=== PATIENT | male | born 1970 | race Caucasian/White ===

== ENCOUNTER 2019-12-03 10:33 | Outpatient (CLI) | payer BC, SELFPAY ==
[2019-12-03 11:14] LABS: Add Urine Microscopic? NO; Appearance Urine Clear (Clear); Bilirubin Urine Negative (Negative); Blood Urine Negative (Negative); Color Urine Straw (Yellow); Glucose Urine UA Negative (Negative); Ketones Urine Negative (Negative); Leukocyte Esterase Ur Negative LEU/UL (NEGATIVE); Nitrate Urine Negative (Negative); Protein Urine Negative (Negative); Specific Grav Ur 1.009 (1.001-1.035); Urobilinogen Urine Negative mg/dL (<2.0)
[2019-12-03 11:26] LABS: Anion Gap 8 mmol/L (8-16); Blood Urea Nitrogen 11 mg/dL (9-20); Calcium 9.5 mg/dL (8.4-10.2); Carbon Dioxide 34 mmol/L (22-30); Chloride 99 mmol/L (98-107); Cholesterol 184 mg/dL (0-200); Estimated Glomerular Filt Rate > 60; Glucose 96 mg/dL (75-110); HDL Direct 34 mg/dL; Potassium 4.1 mmol/L (3.4-5.0); Sodium 141 mmol/L (137-145); Triglycerides 205 mg/dL (<150)
[2019-12-03 11:38] LABS: LDL Cholesterol Direct 120 mg/dL
[2019-12-03 11:54] LABS: Prostate Specific Antigen 0.8 ng/mL (< OR = 4.0); Vitamin D 25 Hydroxy 49.7 ng/mL
[2019-12-03 14:30] LABS: Basophils Absolute Auto 0.1 K/mm3 (0.0-0.1); Basophils Percent Auto 0.6 % (0.2-1.2); Eosinophils Absolute Auto 0.1 K/mm3 (0-0.3); Eosinophils Percent Auto 0.5 % (0-4.4); Hematocrit 45.2 % (42.0-52.0); Hemoglobin 15.5 g/dL (14.0-18.0); Immature Granulocyte Absolute 0.03 K/mm3 (0.00-0.031); Immature Granulocyte Percent A 0.3 % (0-0.5); Lymphocytes Absolute Auto 2.02 K/mm3 (0.9-3.2); Lymphocytes Percent Auto 20.4 % (18.3-44.2); Mean Corpuscular HGB Conc 34.3 g/dl (32-36); Mean Corpuscular Hemoglobin 29.9 pg (26-34); Mean Corpuscular Volume 87.3 fl (80-100); Mean Platelet Volume 9.9 fl (7.4-10.4); Monocytes Absolute Auto 0.9 K/mm3 (0.1-0.6); Monocytes Percent Auto 8.9 % (2.6-8.5); Neutrophils Absolute Auto 6.9 K/mm3 (1.3-6.7); Neutrophils Percent Auto 69.3 % (45.5-73.1); Platelet Count Result 288 k/mm3 (150-375); Red Blood Count 5.18 M/mm3 (4.6-6.20); Red Cell Distribution Width 11.8 % (11.5-14.5); White Blood Count 9.9 K/mm3 (4.5-10.0)
== END 2019-12-03 10:34 | disposition home or self-care (01) ==
PROVIDERS: PCP Family Medicine; Visit Provider Family Medicine
DX: Z13.220 Encounter for screening for lipoid disorders (principal); Z12.5 Encounter for screening for malignant neoplasm of prostate; R35.1 Nocturia; E55.9 Vitamin D deficiency, unspecified
CPT/HCPCS: 36415; 80048; 80061; 81003; 82306; 84153; 85025; G0103

== ENCOUNTER 2020-12-25 09:00 | Outpatient (CLI) | payer BC, SELFPAY ==
[2020-12-25 10:01] LABS: Prostate Specific Antigen 0.9 ng/mL (< OR = 4.0)
== END 2020-12-25 09:01 | disposition home or self-care (01) ==
LOC: ANHLAB 09:01
PROVIDERS: PCP Family Medicine; Visit Provider Family Medicine
DX: Z12.5 Encounter for screening for malignant neoplasm of prostate (principal)
CPT/HCPCS: 36415; 84153; G0103

== ENCOUNTER 2022-09-08 09:55 | Outpatient (CLI) | payer BC, SELFPAY ==
[2022-09-08 10:45] LABS: LDL Cholesterol Direct 130 mg/dL
[2022-09-08 10:53] LABS: Cholesterol 210 mg/dL (0-200); HDL Direct 37 mg/dL; Triglycerides 181 mg/dL (<150)
[2022-09-08 11:09] LABS: Prostate Specific Antigen 0.8 ng/mL (< OR = 4.0)
== END 2022-09-08 09:56 | disposition home or self-care (01) ==
LOC: ANHLAB 09:57
PROVIDERS: PCP Family Medicine; Visit Provider Family Medicine
DX: Z12.5 Encounter for screening for malignant neoplasm of prostate (principal); Z13.220 Encounter for screening for lipoid disorders
CPT/HCPCS: 36415; 80061; 84153; G0103

== ENCOUNTER 2022-12-05 03:02 | Day surgery (SDC) | payer BC, SELFPAY ==
[2022-11-22 15:22] VITALS: BMI 25.0
[2022-12-05 09:42] VITALS: BP 139/75; PULSE 67; RESP 16; TEMP 36; O2SAT 99
[2022-12-05] MEDS: LACTATED RINGERS 1,000 ML 150 ML IV CONT (09:53)
--- NOTE | 2022-12-05 10:47 | PM.HPGS ---
History of Present Illness History of Present Illness Consent: Risks, benefits, and alternatives have been discussed and questions answered. Patient agrees to proceed with procedure. Chief complaint: neoplasm screening Narrative: Alfred Carvajal is a 52 year old male Presents for screening colonoscopy. Patient's current weight appetite and bowel movements are normal. Patient denies abdominal pain. He has had no bleeding. Family history noncontributory. Review of Systems Review of Systems: Review of systems noncontributory. [facility] Past Medical History Medical History (Updated 12/05/22 @ 10:48 by Brad Kenny MD) Need for vaccination Nocturia Screening for lipid disorders Screening for prostate cancer Well adult on routine health check Surgical History Surgical History H/O: vasectomy Hx of tonsillectomy Family History Family History Mother Pancreatic cancer Grandparent Heart disease Father Malignant neoplasm of prostate Other Pancreatic carcinoma Social History Social History Smoking status: Never smoker Second hand tobacco smoke exposure: Yes Alcohol intake: current Substance use: never Substance use type: does not use Lack of Transportation: No Lack of Food: Never True Current Housing: I Have Housing Concerned About Future Housing: No Difficulty Paying Gas/Electric Bills: No Difficulty Paying for Meds: No Currently Unemployed: No Education: Associate Degree Difficulty w/ Childcare or Family Care: No Living arrangements: with family Occupation/Education: occupation Gender identity (if verbalized by the patient): Male Spiritual care concerns: No Meds Home Medications and Allergies Home Medications Medication Instructions Recorded Confirmed Type latanoprost 0.005 % eye drops 1 drp ophthalmic (eye) DAILY 12/03/19 11/22/22 History diph,pertuss(acel),tet vac(PF) 2 0.5 ml IM ONCE #0.5 mL 09/08/22 12/05/22 Rx Lf-(2.5-5-3-5mcg)-5 Lf/0.5 mL IM syringe (Adacel (Tdap Adolesn/Adult)(PF)) cholecalciferol (vitamin D3) 50 50 mcg PO DAILY 11/22/22 12/05/22 History mcg (2,000 unit) capsule (Vitamin D3) magnesium glycinate-mag oxide 240 mg PO DAILY 11/22/22 12/05/22 History zinc 50 mg tablet 50 mg PO DAILY 11/22/22 12/05/22 History Allergies Allergy/AdvReac Type Severity Reaction Status Date / Time No Known Allergies Allergy Verified 12/05/22 09:39 Vital Signs Vital Signs - 24 hr 12/05/22 09:42 Temperature 96.8 F L Pulse Rate 67 Respiratory Rate 16 Blood Pressure 139/75 Pulse Oximetry 99 Oxygen Delivery Room Air Exam Narrative: Physical exam reveals patient to be alert. Vital signs stable. HEENT exam is unremarkable. Patient is anicteric. Lungs are clear to auscultation and percussion. Heart is without murmur or extra sounds. Abdomen bowel sounds are present soft nontender with no organomegaly. Digital external rectal exam normal. She Assessment and Plan Assessment and plan (1) Encounter for screening colonoscopy: Code(s): Z12.11 - Encounter for screening for malignant neoplasm of colon Status: Acute Assessment and Plan: patient presents today for screening colonoscopy. He appears to be at average risk for colon polyps are ruling a shins may be given after endoscopy.
[2022-12-05 11:05] VITALS: BP 99/55; PULSE 50; RESP 14; O2SAT 99
[2022-12-05 11:15] VITALS: BP 114/70; PULSE 70; RESP 20; O2SAT 97
[2022-12-05 11:25] VITALS: BP 116/72; PULSE 53; RESP 16; O2SAT 97
== END 2022-12-05 11:34 | disposition home or self-care (01) ==
PROVIDERS: PCP Family Medicine; Visit Provider Internal Medicine Gastroenterology
PROC: 0DJD8ZZ Inspection of Lower Intestinal Tract, Via Natural or Artificial Opening Endoscopic (ICD-10-PCS; CPT 45378; principal; 2022-12-05 11:00)
DX: Z12.11 Encounter for screening for malignant neoplasm of colon (principal)
CPT/HCPCS: 45378; J2704; J7120

== ENCOUNTER 2024-12-19 14:08 | Outpatient (CLI) | payer BC, SELFPAY ==
--- NOTE | ~2024-12-19 | CT_ITS ---
Exam: CT abdomen and pelvis without contrast Clinical History: [Right-sided flank pain. ] Comparison: [ None available] Technique: Multiple axial CT images of the abdomen and pelvis were obtained without IV contrast. Sagittal and coronal reformatted images were obtained. FINDINGS: Lung bases: [ ] Liver: [ No mass.] [ No intrahepatic biliary duct dilatation.] Gallbladder: [ No wall thickening or stones.] Common bile duct: [ Normal caliber.] [ No stones.] Spleen: [ Within normal limits.] Pancreas: [ No mass. No pancreatic fluid collection.] Adrenals: [ No masses.] Kidneys: [ No masses. No hydronephrosis.][ ] Lymph nodes: [ No adenopathy in the abdomen or pelvis.] Stomach, small bowel and colon: [ No bowel wall thickening or obstruction.] Peritoneum cavity: [ No mesenteric fat stranding or fluid.] Bladder: [ Unremarkable.] Osseous structures: [ No acute fracture or destructive lesion.] [ Multilevel degenerative change in the visualized spine.] Abdominal aorta: [ No aneurysm.] Additional findings: Prostate gland is partially calcified and mildly enlarged. IMPRESSION: 1. No CT evidence for an acute process in the abdomen or pelvis at this time. If symptoms persist or worsen, consider a short-term follow-up study or additional imaging for further assessment. Reviewed, dictated and finalized at location Q. IMPRESSION: 1. No CT evidence for an acute process in the abdomen or pelvis at this time. If symptoms persist or worsen, consider a short-term follow-up study or additio nal imaging for further assessment.
--- NOTE | ~2024-12-19 | XR_ITS ---
Abdominal radiograph(s) INDICATION: Flank pain COMPARISON: None TECHNIQUE: 2 view supine AP abdomen FINDINGS: Lung bases clear. Scattered colonic gas and stool. Small bowel loops not well seen. No evidence of organomegaly. No abnormal abdominal calcifications. Pelvic phleboliths. No acute bony abnormality. IMPRESSION: 1. No acute findings. Reviewed, dictated and finalized at location R. IMPRESSION: 1. No acute findings.
--- OUTSIDE RECORDS SUMMARY | 2024-12-19 14:45 | XMS_ITS | Encounter Summary ---
Author Organization [facility] Address 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
--- OUTSIDE RECORDS SUMMARY | 2024-12-19 14:45 | XMS_ITS | Clinical Summary ---
Author Organization [facility] Address [address] [address] Phone Care Team Providers Care Anatomic Pathology Manager Name Role Phone Ky Aguilar MD Primary Care Provider + Ky Aguilar MD Unavailable [phone] Allergies No known active allergies Medications methylPREDNISol one (MEDROL DOSEPACK) 4 mg Dosepack Take 6 tabs on day 1, reduce dose by 1 daily until prescription is complete. 1 packet 5 Active Active Problems Problem Noted Date Diagnosed Date BMI 24.0-24.9, adult 12/29/2016 Assessment & Plan (12/29/2016 10:13 AM SNOW REMOVAL SUPERVISOR): BMI Follow-up includes: nutrition counseling, exercise counseling and education provided. Physical exam, annual 12/29/2016 Assessment & Plan (12/29/2016 10:51 AM SNOW REMOVAL SUPERVISOR): Patient comes in today for a routine physical exam. Health maintenance objectives were discussed and exam performed as noted. Surgical follow-up care 05/15/2012 Seborrheic eczema 04/09/2012 Skin neoplasm 04/09/2012 Infectious warts 04/09/2012 Epistaxis 01/19/2011 Encounters Date Type Department Care Team Description 11/27/2024 8:30 AM CDT Office Visit [facility] at [address] [address] Morris Christina NP Acute left-sided low back pain without sciatica (Primary Dx); Strain of lumbar region, initial encounter from Last 3 Months Immunizations Immunization Administration Dates Next Due Influenza, Unspecified 12/29/2016(Deferred: Debbie ent decision) Surgical History Surgery Date Site/Laterality Comments VASECTOMY 2009 Medical History Medical History Date Comments Sleep disorder Sleep disorder Glaucoma 01/20/2019 Family History Medical History Relation Name Comments Cancer Mother Relation Name Status Comments Mother Social History Tobacco Use Types Packs/Day Years Used Date Smoking Tobacco: Never Smokeless Tobacco: Never Tobacco Cessation:Counseling Given: Not Answered Alcohol Use Standard Drinks/Week Comments Yes 0 (1 standard drink = 0.6 oz pur e alcohol) Sex and Gender Information Value Date Recorded Sex Assigned at Not on file Legal Sex Male 4:14 AM SNOW REMOVAL SUPERVISOR Gender Identity Not on file Sexual Orientation Not on file Obstetrics History Last Filed Vital Signs Vital Sign Reading Time Taken Comments Blood Pressure 128/86 11/27/2024 8:12 AM CDT Pulse 86 11/27/2024 8:12 AM CDT Temperature 36.7 C (98.1 F) 11/27/2024 8:12 AM CDT Respiratory Rate 18 11/27/2024 8:12 AM CDT Oxygen Saturation 98% 11/27/2024 8:12 AM CDT Inhaled Oxygen Concentration - - Weight 87.1 kg (192 lb) 11/27/2024 8:12 AM CDT Height 182.9 cm (6') 12/29/2016 10:09 AM SNOW REMOVAL SUPERVISOR Body Mass Index 26.04 12/29/2016 10:09 AM SNOW REMOVAL SUPERVISOR Plan of Treatment Health Maintenance Due Date Last Done Comments Colon Cancer Screening-Colonoscopy 1971 Hepatitis C Screening 1971 Prostate Cancer Screening-PSA 1971 DTaP/Tdap/Td Vaccine (1 - Tdap) 10/28/1982 Hepatitis B Screening 10/28/1989 Depression Screening 12/29/2017 12/29/2016 Regular Well Visit/Exam 18-64 12/29/2017 12/29/2016 Zoster Vaccine (1 of 2) 10/28/2021 Influenza Vaccine (#1) 2024 Pneumococcal vaccine <65 Aged Out No longer eligible based on patient's age to complete this topic Insurance ANTHEM ACCESS CHOICE ANTHEM ACCESS CHOICE Care Teams Anatomic Pathology Manager Relationship Specialty Start Date End Date Ky Aguilar MD [address] [address] PCP - General Internal Medicine 12/05/16 Ky Aguilar MD [address] [place] [address] PCP - [place] Attributed PCP 08/20/16
--- OUTSIDE RECORDS SUMMARY | 2024-12-19 14:45 | XMS_ITS | Clinical Summary ---
Author Organization 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
[2024-12-19 15:00] LABS: Hematocrit 47.9 % (42.0-52.0); Hemoglobin 16.3 g/dL (14.0-18.0); Immature Granulocyte Percent A 0.5 % (0-0.5); Lymphocytes Absolute Auto 2.04 K/mm3 (0.9-3.2); Mean Corpuscular HGB Conc 34.0 g/dl (32-36); Mean Corpuscular Hemoglobin 30.0 pg (26-34); Mean Corpuscular Volume 88.1 fl (80-100); Nucleated Red Blood Cells Absolute Auto 0.000 K/mm3 (0.0-0.012); Nucleated Red Blood Cells Perc 0.0 % (0.0-0.2); Platelet Count Result 305 k/mm3 (150-375); Red Blood Count 5.44 M/mm3 (4.6-6.20); White Blood Count 13.9 K/mm3 (4.5-10.0)
[2024-12-19 15:21] LABS: Alanine Aminotransferase 40 U/L (6-50); Albumin Level 5.0 g/dL (3.5-5.1); Alkaline Phosphatase 91 U/L (38-126); Anion Gap 10 mmol/L (4-12); Aspartate Amino Transferase 33 U/L (17-59); Bilirubin,Total 1.0 mg/dL (0.2-1.3); Blood Urea Nitrogen 20 mg/dL (9-20); Calcium 9.5 mg/dL (8.4-10.2); Carbon Dioxide 29 mmol/L (22-30); Chloride 97 mmol/L (98-107); Cholesterol 240 mg/dL (0-200); Estimated Glomerular Filt Rate > 60; Glucose 94 mg/dL (65-110); HDL Direct 52 mg/dL; Potassium 4.0 mmol/L (3.4-5.0); Sodium 136 mmol/L (137-145); Total Protein 8.5 g/dL (6.3-8.2); Triglycerides 81 mg/dL (<150)
[2024-12-19 15:51] LABS: Prostate Specific Antigen 0.8 ng/mL (< OR = 4.0)
== END 2024-12-19 14:09 | disposition home or self-care (01) ==
LOC: ANHIMG 14:10
PROVIDERS: PCP Family Medicine; Visit Provider Family Medicine
DX: R10.A1 Flank pain, right side (principal); Z12.5 Encounter for screening for malignant neoplasm of prostate; R31.9 Hematuria, unspecified; Z13.220 Encounter for screening for lipoid disorders
CPT/HCPCS: 36415; 74018; 74176; 80053; 80061; 84153; 85025; G0103

== ENCOUNTER 2025-01-09 08:18 | Outpatient (CLI) | payer BC, SELFPAY ==
--- NOTE | ~2025-01-09 | US_ITS ---
EXAMINATION: US scrotum doppler, 01/09/2025 8:19 RESIDENT PHYSICIAN HISTORY: N45.1 - Epididymitis Comparison: None Technique: [place]-scale and color Doppler images were obtained of the testes with spectral analysis to document arterial and venous flow. Findings: Right Testicle:Right testicle 3.3 x 2.5 x 1.9 cm, normal parenchyma, normal flow. Right Epidiymis:Unremarkable. Normal flow. Left Testicle: Left testicle 3.7 x 2.5 x 2.1 cm, normal parenchyma, normal flow Left Epidiymis: Unremarkable. Normal flow. Hydrocele: None . Varicocele: None Scrotum: Unremarkable. No skin thickening. Impression: No acute abnormality. Reviewed, dictated and finalized at location P. DENT PHYSICIAN Impression: No acute abnormality.
== END 2025-01-09 08:19 | disposition home or self-care (01) ==
LOC: GOSHIMG 08:18
PROVIDERS: PCP Family Medicine; Visit Provider Family Medicine
DX: N45.1 Epididymitis (principal); R31.1 Benign essential microscopic hematuria
CPT/HCPCS: 76870; 93976